=== PATIENT | female | born 1955 | race Caucasian/White ===

== ENCOUNTER → 2019-10-18 11:30 | Outpatient (CLI) | payer OTHER, SELFPAY ==
--- NOTE | 2019-10-18 | DI.US.S_ITS ---
PROCEDURE: US PERIPH VENOUS LOW EXTREM BI INDICATIONS: HEMANGIOMA OF SKIN AND SUBCUTANEOUS TISSUE TECHNIQUE: Real-time imaging, as well as color and pulse Doppler interrogation, were performed of the deep veins of both legs from the inguinal ligament to the popliteal fossa. COMPARISON: None. FINDINGS: Right: The common femoral, femoral and popliteal veins are normally compressible, and free of intraluminal thrombus. Color and pulse Doppler demonstrate normal phasic intravascular flow. There is normal augmentation response to distal compression maneuver. Left: The common femoral, femoral and popliteal veins are normally compressible, and free of intraluminal thrombus. Color and pulse Doppler demonstrate normal phasic intravascular flow. There is normal augmentation response to distal compression maneuver. The left ankle, there are multiple complex hypoechoic structures demonstrating internal vascularity. First lesion measures 2.6 x 0.6 x 2.9 cm. Second lesion measures 3.7 x 1.0 x 4.5 cm. Other lesion measures 7.3 x 1.0 x 3.6 cm however exact measurements are difficult due to irregular configuration. These could reflect patient's given clinical history of hemangioma or other vascular anomaly although technically nonspecific. Cannot exclude solid soft tissue mass. IMPRESSION: No evidence of deep venous thrombosis bilaterally Multifocal, irregular hypoechoic structures demonstrating partial internal vascularity. These findings are technically indeterminate. Further evaluation could be performed with contrast-enhanced MRI as clinically warranted. Dictated by: Ghanshyam Brown M.D. on 10/18/2019 at 16:33 Approved by: Ghanshyam Brown M.D. on 10/18/2019 at 16:37
== END ==
PROVIDERS: PCP Student in an Organized Health Care Education/Training Program; Referring Provider Student in an Organized Health Care Education/Training Program; Visit Provider Student in an Organized Health Care Education/Training Program
DX: D18.01 Hemangioma of skin and subcutaneous tissue (principal)
CPT/HCPCS: 93970

== ENCOUNTER → 2020-04-17 10:39 | Outpatient (CLI) | payer OTHER, SELFPAY ==
--- NOTE | 2020-04-17 | DI.US.S_ITS ---
PROCEDURE: US ABDOMEN COMPLETE INDICATIONS: ABNORMAL LFTS TECHNIQUE: Real-time scanning was performed of the abdominal and retroperitoneal organs, with image documentation. COMPARISON: None. FINDINGS: Liver: The liver demonstrates normal size. The liver demonstrates generalized increased echogenicity. This decreases ultrasound sensitivity for detection of hepatic masses. Gallbladder: No findings of gallstones or sludge are seen. The gallbladder wall is not thickened, measuring 3 mm or less. No specific pericholecystic fluid is seen. The sonographic Pathak sign is negative. Biliary ducts: Intrahepatic bile ducts are non-dilated. Extrahepatic bile duct caliber measures 5 mm. Normal is 6-7 mm or less in diameter, or 10 mm or less post-cholecystectomy. Pancreas: Visualized portions of the pancreas are sonographically normal. Spleen: Spleen is normal in size and homogeneous in echotexture. Kidneys: Kidneys are normal in size and echotexture. Right kidney measures 10.8 cm long; left kidney measures 10.5 cm long. No hydronephrosis or nephrolithiasis. No solid masses. Aorta: Visualized aorta is normal in caliber at less than 3 cm. Iliacs: Proximal common iliac arteries are normal in caliber at less than 2.5 cm. IVC: Intrahepatic inferior vena cava is patent. Miscellaneous: No free abdominal fluid. IMPRESSION: Fatty liver infiltration. The gallbladder demonstrates a normal sonographic appearance. No biliary dilatation is seen. Dictated by: Julian Castillo M.D. on 04/17/2020 at 11:16 Approved by: Julian Castillo M.D. on 04/17/2020 at 11:16
== END ==
PROVIDERS: PCP Student in an Organized Health Care Education/Training Program; Referring Provider Student in an Organized Health Care Education/Training Program; Visit Provider Student in an Organized Health Care Education/Training Program
DX: R79.89 Other specified abnormal findings of blood chemistry (principal); K76.0 Fatty (change of) liver, not elsewhere classified
CPT/HCPCS: 76700